=== PATIENT | female | born 1985 | race Caucasian/White ===

== ENCOUNTER 2022-06-20 19:16 | Emergency (ER) | payer SELFPAY ==
[~2022-06-20] VITALS: Ht 144.8 cm; Wt 73.0 kg
[2022-06-20] MEDS ORDERED: KETOROLAC 60MG/2ML VIAL IM ONE (22:00)
[2022-06-20] MEDS ORDERED: CYCL10TA21 MT (23:05)
[2022-06-20] MEDS ORDERED: IBUP-2029 MT (23:05)
[2022-06-20 23:10] VITALS: BP 109/73
== END 2022-06-20 23:10 | disposition home or self-care (01) ==
LOC: ER 19:16
DX: S30.0XXA Contusion of lower back and pelvis, initial encounter (principal); Z98.890 Other specified postprocedural states; W18.30XA Fall on same level, unspecified, initial encounter; Y93.89 Activity, other specified; Y92.89 Other specified places as the place of occurrence of the external cause; Y99.8 Other external cause status
CPT/HCPCS: 72220; 81025; 96372; 99283; J1885

== ENCOUNTER 2025-06-08 20:30 | Emergency (ER) | payer MEDICAID ==
[~2025-06-08] VITALS: Ht 149.9 cm; Wt 68.0 kg
[~2025-06-08 20:30] MED LIST: CYCL10TA21 MT; IBUP-2029 MT
[2025-06-08 21:05] VITALS: O2SAT 100
[2025-06-09 03:37] LABS: BASOPHILS % 0.7 % (0.0-2.0); EOSINOPHILS % 2.7 % (0.0-5.0); HEMATOCRIT. 35.1 % (36.0-48.0); HEMOGLOBIN. 11.4 g/dL (12.0-16.0); LYMPHOCYTES % 40.6 % (20.0-50.0); MEAN PLATELET VOLUME 9.6 fl (7.4-10.4); MONOCYTES % 7.7 % (2.0-8.0); NEUTROPHILS % 48.3 % (40.0-76.0); PLATELET 270 x1000/uL (130-400); RED BLOOD CELL COUNT 4.45 mill/uL (4.2-5.4); RED CELL DISTRIBUTION WIDTH 16.8 % (11.6-14.6)
[2025-06-09 03:50] LABS: CREATININE 0.8 mg/dL (0.6-1.0); UREA NITROGEN BLOOD 16 mg/dL (9-23)
[2025-06-09 04:03] LABS: HCG SCREEN NEGATIVE
[2025-06-09 04:28] LABS: CLARITY URINE CLEAR (CLEAR); COLOR URINE YELLOW (YELLOW); GLUCOSE URINE NEGATIVE (NEGATIVE); KETONES URINE NEGATIVE (NEGATIVE); LEUKOCYTE ESTERASE URINE 3+ (NEGATIVE); NITRITE URINE NEGATIVE (NEGATIVE); OCCULT BLOOD URINE TRACE (NEGATIVE); PH URINE 6.5 (4.5-8.0); PROTEIN URINE NEGATIVE (NEGATIVE); SPECIFIC GRAVITY URINE 1.008 (1.005-1.030); UROBILINOGEN URINE 0.2 E.U./dL (0.2-1.0)
[2025-06-09 05:26] LABS: WBC URINE 0-2 /hpf (0-2)
[2025-06-09 05:28] LABS: BACTERIA URINE NONE SEEN; SQUAMOUS EPITHELIAL CELL URINE FEW /lpf (RARE/1+)
[2025-06-09] MEDS ORDERED: HYDR26CR2 TP (06:12)
[2025-06-09] MEDS ORDERED: IBUP-2028 MT (06:12)
[2025-06-09] MEDS ORDERED: NITR100C MT (06:13)
[2025-06-09 06:30] VITALS: BP 118/63; PULSE 80; RESP 14; TEMP 36.7; O2SAT 100
== END 2025-06-09 06:50 | disposition home or self-care (01) ==
LOC: ER 20:30 → CANBEDREQ 06-09 06:38 → ER 06-09 06:50
DX: N39.0 Urinary tract infection, site not specified (principal); K64.4 Residual hemorrhoidal skin tags; Z98.890 Other specified postprocedural states; Z79.899 Other long term (current) drug therapy
CPT/HCPCS: 99285; 74177; 80048; 81003; 84703; 85025; 36415; Q9967; 99284